=== PATIENT | female | born 1985 | race Caucasian/White ===

== ENCOUNTER → 2018-11-14 | Outpatient (CLI) | payer OTHER ==
--- NOTE | 2018-11-14 13:00 | RAD ---
EXAM: Left knee, 2 views. HISTORY: Pain. COMPARISON: None. FINDINGS: 2 views left knee are obtained. There is no fracture, dislocation or subluxation. There is trace joint fluid without a significant effusion. IMPRESSION: No acute osseous finding. Electronically signed by: Mckenzie Jimenez MD (11/14/2018 12:56 PM) [facility]
== END | disposition home or self-care (01) ==
LOC: RAD 11:40
PROVIDERS: ATTEND Nurse Practitioner
DX: M25.562 Pain in left knee (principal)
CPT/HCPCS: 73560